=== PATIENT | female | born 1985 | race Caucasian/White ===

== ENCOUNTER 2016-09-25 14:18 | Emergency (ER) | payer OTHER ==
[2016-09-25 14:38] VITALS: BP 132/87; PULSE 99; RESP 18; TEMP 98.8; O2SAT 97
--- NOTE | 2016-09-25 15:26 | DX ---
Right elbow, 3 views. HISTORY: Elbow pain after fall today. FINDINGS: There is a nondisplaced fracture of the radial head with intra-articular extension seen bes t on the lateral view. Elbow joint effusion. Normal mineralization and alignment. IMPRESSION: Nondisplaced intra-articular fracture of the right radial head with joint effusion.
--- NOTE | 2016-09-25 15:27 | DX ---
Right humerus, 2 views. HISTORY: Pain after fall. FINDINGS: Normal mineralization and alignment. No evidence for fracture of the right humerus. No evid ence for soft tissue calcification or radiopaque foreign body. IMPRESSION: Unremarkable right humerus.
--- NOTE | 2016-09-25 15:36 | EDPHY ---
H & P Time Seen by Provider: 09/25/16 14:49 HPI/ROS: CHIEF COMPLAINT: Right elbow pain HISTORY OF PRESENT ILLNESS: 30-year-old female visiting from [place] was cross-country skiing when she fell onto her right elbow. Complaint right elbow pain. Limited range of motion secondary to pain. No proximal distal pain or injury. No head injury. No paresthesia. PHYSICAL EXAM (Prior to examination, patient consented to physical exam, hands were washed and my usual and customary physical exam procedures followed) 1) GENERAL: Well-developed, well-nourished, alert and oriented. Appears to be in no acute distress. 2) HEAD: Normocephalic 3) HEENT: sclera anicteric 4) LUNGS: Breathing comfortably. 5) SKIN: intact. 6) MUSCULOSKELETAL: elbow flexed at 90 degrees. Tender palpation radial head. Proximally distally nontender. 7) NEUROLOGIC:Distal radial ulnar median nerve function intact Smoking Status: Never smoked Constitutional: Initial Vital Signs Temperature (C) 37.1 C 09/25/16 14:34 Heart Rate 99 09/25/16 14:34 Respiratory Rate 18 09/25/16 14:34 Blood Pressure 132/87 H 09/25/16 14:34 O2 Sat (%) 97 09/25/16 14:34 O2 Delivery Mode Room Air Allergies/Adverse Reactions: aspirin Allergy (Verified 09/25/16 14:34) cefaclor [From Ceclor] Allergy (Verified 09/25/16 14:34) Penicillins Allergy (Verified 09/25/16 14:34) Sulfa (Sulfonamide Antibiotics) Allergy (Verified 09/25/16 14:34) Home Medications: Medication Instructions Recorded Lialda 09/25/16 oxyCODONE/APAP 5/325 [Percocet 1 tab PO Q6 #10 tab 09/25/16 5/325] MDM/Departure - MDM Diagnostics: Right humerus, 2 views. HISTORY: Pain after fall. FINDINGS: Normal mineralization and alignment. No evidence for fracture of the right humerus. No evidence for soft tissue calcification or radiopaque foreign body. IMPRESSION: Unremarkable right humerus. Dictated By: Raffaele Ly MD Right elbow, 3 views. HISTORY: Elbow pain after fall today. FINDINGS: There is a nondisplaced fracture of the radial head with intra- articular extension seen best on the lateral view. Elbow joint effusion. Normal mineralization and alignment. IMPRESSION: Nondisplaced intra-articular fracture of the right radial head with joint effusion. Dictated By: Raffaele Ly MD Images reviewed by myself Procedures: Procedure: Fracture treatment. The patient had x-rays taken and I confirmed that the patient had a fractured Radial head . upper extremity sling was applied by ER on site wastewater systems technician. After application of the splint I returned and re-examined the patient. The splint was adequately immobilizing the joint and distal to the splint the patient's circulation and sensation were intact. Patient shows no signs of compartment syndrome. Was given orthopedic precautions. ED Course/Re-evaluation: Patient neurovascular intact. She is returning to [place] in 2 days. Recommend she follow up with an orthopedic surgeon when she returns home. Given copies of her xrays. Placed in a sling. Usual customary orthopedic precautions instructions provided. - Depart Disposition: Home, Routine, Self-Care Clinical Impression: Fracture of head of right radius Qualifiers: Encounter type: initial encounter Fracture type: closed Fracture alignment: nondisplaced Qualifier Code: (S52.124A) Nondisplaced fracture of head of right radius, initial encounter for closed fracture Condition: Good Instructions: Elbow Fracture in Adults (ED) Additional Instructions: Return to the ER immediately if you experience discoloration, have worsening pain, numbness, tingling, or any other symptoms that concern you. If you received x-rays in the emergency department today, be advised, that ligamentous , tendon, muscular, and other non-bony injury cannot be fully ruled out. Try to keep your affected extremity elevated above the level of your chest, and keep cold packs on the affected area, for the next 48 hours. Prescriptions: oxyCODONE/APAP 5/325 [Percocet 5/325] 1 tab PO Q6 #10 tab Referrals: Edd Jordan MD [Medical Doctor] - 5-7 days, call for appt.
== END 2016-09-25 16:18 | disposition home or self-care (01) ==
DX: S52.124A Nondisplaced fracture of head of right radius, initial encounter for closed fracture (principal); V00.321A Fall from snow-skis, initial encounter; Y92.89 Other specified places as the place of occurrence of the external cause; Y99.8 Other external cause status; Y93.23 Activity, snow (alpine) (downhill) skiing, snowboarding, sledding, tobogganing and snow tubing
CPT/HCPCS: L3980